=== PATIENT | female | born 1985 | race Caucasian/White ===

== ENCOUNTER 2018-09-10 13:03 | Emergency (ER) | payer OTHER ==
[2018-09-10 14:54] VITALS: BP 120/84
--- NOTE | 2018-09-10 15:01 | UC ---
Lower Extremity/Ankle HPI - HPI Summary HPI Summary: 33-year-old woman comes in with a chief complaint of left ankle pain. Started yesterday when she was walking and she twisted her ankle. Pain is worse in the posterior aspect near the Achilles tendon. The pain was fairly mild yesterday however the pains got a lot worse today. She's broken the ankle before she does not feel she has a fracture and declines x-ray. She is able to plantarflex and dorsiflex her foot however the dorsiflexion and also inversion of the ankle make the pain in the posterior ankle much worse as does weightbearing. No weakness or numbness. - History of Current Complaint Chief Complaint: UCLowerExtremity Stated Complaint: LT ANKLE Time Seen by Provider: 09/10/18 14:46 Hx Last Menstrual Period: 07/09 Pain Intensity: 2 - Allergies/Home Medications Allergies/Adverse Reactions: Allergies Allergy/AdvReac Type Severity Reaction Status Date / Time bee venom protein (honey bee) Allergy Difficulty Verified 09/10/18 14:45 Breathing Home Medications: Home Medications Epi-Pen 1 dose IM SEE INSTRUCTIONS PRN 09/10/18 [History] PMH/Surg Hx/FS Hx/Imm Hx Other Endocrine History: LUPUS - Surgical History Surgical History: Yes Surgery Procedure, Year, and Place: 5 C-SECTS. CHOLECYSTECTOMY - Family History Known Family History: Positive: Diabetes - Social History Alcohol Use: Rare Substance Use Type: None Smoking Status (MU): Never Smoked Tobacco Review of Systems Constitutional: Negative Skin: Negative Eyes: Negative ENT: Negative Respiratory: Negative Cardiovascular: Negative Gastrointestinal: Negative Motor: Negative Neurovascular: Negative Musculoskeletal: Other: - SEE HPI Neurological: Negative Psychological: Negative Is Patient Immunocompromised?: No All Other Systems Reviewed And Are Negative: Yes Physical Exam Triage Information Reviewed: Yes Appearance: Well-Appearing, Well-Nourished, Pain Distress - MILD WITH LT ANKLE MOVEMENT Vital Signs: Initial Vital Signs Temp 99 F 09/10/18 14:48 Pulse 91 09/10/18 14:48 Resp 22 09/10/18 14:48 BP 120/84 09/10/18 14:48 Pulse Ox 99 09/10/18 14:48 Vital Signs Reviewed: Yes Eye Exam: Normal Eyes: Positive: Conjunctiva Clear Neck exam: Normal Neck: Positive: Supple Respiratory: Positive: No respiratory distress Musculoskeletal: Positive: Other: - Left ankle is tender on the Achilles tendon then just anterior to the Achilles tendon. Tenderness is worse on the medial aspect patient is able to plantarflex and dorsiflex. The Achilles tendon is intact. Positive posterior tibial and dorsalis pedis pulses. No sensation deficit. Neurological Exam: Normal Neurological: Positive: Alert, Muscle Tone Normal Psychological Exam: Normal Psychological: Positive: Age Appropriate Behavior Skin Exam: Normal Lower Extremity Course/Dx - Course Course Of Treatment: Patient reports that she's had an ankle fracture in the past this does not feel like ankle fracture and therefore she declines an x-ray at this time. She has 6 children at home. The plan is to use a cam walker and crutches with weightbearing as tolerated. Ice ibuprofen and elevation and rest. The plan will be to follow-up with orthopedics or sports medicine if not completely improved. - Differential Dx/Diagnosis Provider Diagnoses: LEFT ANKLE SPRAIN Discharge - Sign-Out/Discharge Documenting (check all that apply): Patient Departure All imaging exams completed and their final reports reviewed: No Studies - Discharge Plan Condition: Stable Disposition: HOME Patient Education Materials: Ankle Sprain (ED) Referrals: Yaneth Wang DO [Primary Care Provider] - Nima Martin MD [Medical Doctor] - Diana Rodgers MD [Medical Doctor] - Susanna Becker MD [Medical Doctor] - Pranav CORREA,Warren Najera [Medical Doctor] - Additional Instructions: FOLLOW UP WITH ORTHOPEDICS OR SPORTS MEDICINE IF NOT COMPLETELY IMPROVED. GET RECHECKED FOR ANY WORSENING OF YOUR CONDITION OR QUESTIONS OR CONCERNS. - Billing Disposition and Condition Condition: STABLE Disposition: Home
== END 2018-09-10 15:21 | disposition home or self-care (01) ==
LOC: UCCORT 13:03
DX: S93.402A Sprain of unspecified ligament of left ankle, initial encounter (principal); M32.9 Systemic lupus erythematosus, unspecified; W01.0XXA Fall on same level from slipping, tripping and stumbling without subsequent striking against object, initial encounter; Y93.01 Activity, walking, marching and hiking; Y92.9 Unspecified place or not applicable; Z91.030 Bee allergy status
CPT/HCPCS: 99203; G0463

== ENCOUNTER 2018-11-12 11:04 | Emergency (ER) | payer OTHER ==
[2018-11-12 12:53] VITALS: BP 119/95
[2018-11-12] MEDS ORDERED: Ibuprofen TAB* 400 MG PO ONE (13:05)
--- NOTE | 2018-11-12 13:08 | UC ---
Respiratory Complaint HPI - HPI Summary HPI Summary: PAtient has been febrile, she is having a hard time taking a deep breath, hurts all over, has sinus pressure. - History of Current Complaint Chief Complaint: UCRespiratory Stated Complaint: VOICE LOSS, CONGESTION, COUGH Time Seen by Provider: 11/12/18 12:59 Hx Obtained From: Patient Hx Last Menstrual Period: 06/18/18 ?: No Onset/Duration: Sudden Onset, Lasting Days Timing: Constant Severity Initially: Moderate Severity Currently: Moderate Pain Intensity: 0 Character: Cough: Nonproductive Aggravating Factors: Exertion, Deep Breaths Associated Signs And Symptoms: Positive: Dyspnea, Fever, Wheezing, Nasal Congestion - Allergies/Home Medications Allergies/Adverse Reactions: Allergies Allergy/AdvReac Type Severity Reaction Status Date / Time bee venom protein (honey bee) Allergy Difficulty Verified 11/12/18 12:54 Breathing PMH/Surg Hx/FS Hx/Imm Hx Previously Healthy: Yes - Surgical History Surgical History: Yes Surgery Procedure, Year, and Place: 5 C-SECTS. CHOLECYSTECTOMY - Family History Known Family History: Positive: Diabetes - Social History Alcohol Use: Rare Substance Use Type: None Smoking Status (MU): Never Smoked Tobacco Review of Systems All Other Systems Reviewed And Are Negative: Yes Constitutional: Positive: Fever, Fatigue Skin: Positive: Negative Eyes: Positive: Negative ENT: Positive: Sore Throat, Nasal Discharge, Sinus Congestion Respiratory: Positive: Shortness Of Breath, Cough Cardiovascular: Positive: Negative Gastrointestinal: Positive: Negative Genitourinary: Positive: Negative Motor: Positive: Negative Neurovascular: Positive: Negative Musculoskeletal: Positive: Myalgia Neurological: Positive: Headache Psychological: Positive: Negative Is Patient Immunocompromised?: No Physical Exam Triage Information Reviewed: Yes Appearance: Well-Nourished, Ill-Appearing, Pain Distress Vital Signs: Initial Vital Signs Temp 98.0 F 11/12/18 12:49 Pulse 96 11/12/18 12:49 Resp 20 11/12/18 12:49 BP 119/95 11/12/18 12:49 Pulse Ox 98 11/12/18 12:49 Eye Exam: Normal ENT: Positive: Pharyngeal erythema, TM bulging Dental Exam: Normal Neck exam: Normal Neck: Positive: Supple, Nontender, No Lymphadenopathy Respiratory: Positive: No respiratory distress - mild, No accessory muscle use, Decreased breath sounds Cardiovascular Exam: Normal Cardiovascular: Positive: RRR, No Murmur, Pulses Normal Abdominal Exam: Normal Abdomen Description: Positive: Nontender, No Organomegaly, Soft Musculoskeletal Exam: Normal Neurological Exam: Normal Psychological Exam: Normal Skin Exam: Normal UC Diagnostic Evaluation - Laboratory O2 Sat by Pulse Oximetry: 98 Respiratory Course/Dx - Course Course Of Treatment: hx obtained, exam performed meds reviewed, rapid flu obtained, ibuprofen given - Differential Dx/Diagnosis Differential Diagnosis/HQI/PQRI: Aspiration, Asthma, Bronchitis, Influenza, Laryngitis, Sinusitis Provider Diagnosis: Sinusitis, Bronchitis Discharge - Sign-Out/Discharge Documenting (check all that apply): Patient Departure All imaging exams completed and their final reports reviewed: No Studies - Discharge Plan Condition: Stable Disposition: HOME Prescriptions: Azithromyxin APARNA (NF) [Z-Aparna (Zithromax) 250 mg tabs #6] 2 tab PO .TODAY, THEN 1 DAILY #6 tab predniSONE [Prednisone 20 MG TAB] 40 mg PO DAILY #14 tablet Patient Education Materials: Sinusitis (ED) Referrals: Yaneth Wang DO [Primary Care Provider] - Additional Instructions: 1. take the medication as prescribed. 2. Increase fluid intake 3. Ibuprofen and tylneol for pain and fever. 4. Follow up with your doctor if not improving. - Billing Disposition and Condition Condition: STABLE Disposition: Home - Attestation Statements Provider Attestation: Per institutional requirements, I have reviewed the chart, however, I was not consulted specifically or made aware of this patient by the midlevel provider. I did not personally evaluate, interact with , or disposition this patient.
== END 2018-11-12 13:55 | disposition home or self-care (01) ==
LOC: UCCORT 11:04
DX: J32.9 Chronic sinusitis, unspecified (principal); J40 Bronchitis, not specified as acute or chronic
CPT/HCPCS: 99212; A9270-GY; G0463

== ENCOUNTER 2019-03-27 19:03 | Emergency (ER) | payer OTHER ==
[2019-03-27 19:20] VITALS: BP 130/68
[2019-03-27] MEDS ORDERED: Naproxen TAB* 250 MG PO ONE (19:28)
--- NOTE | 2019-03-27 20:02 | UC ---
Lower Extremity/Ankle HPI - HPI Summary HPI Summary: 34-year-old female presents with complaints of left foot pain. States last night she accidentally kicked a door jam. States after the injury she thought that the second toe of her left foot was at an abnormal angle so she straight to back out on her own. Today she's had continued pain of the second third and fourth toes of her left foot as well as to the dorsal aspect of her left foot. She was able to bear weight and walk after the injury but states pain worsens with any weightbearing and sometimes radiates into the medial left ankle. Denies numbness or tingling. - History of Current Complaint Chief Complaint: UCLowerExtremity Stated Complaint: TOE INJURY/LEFT FOOT SWELLING Time Seen by Provider: 03/27/19 19:52 Hx Obtained From: Patient Hx Last Menstrual Period: 06/18/18 Pain Intensity: 5 - Allergies/Home Medications Allergies/Adverse Reactions: Allergies Allergy/AdvReac Type Severity Reaction Status Date / Time bee venom protein (honey bee) Allergy Difficulty Verified 03/27/19 19:21 Breathing PMH/Surg Hx/FS Hx/Imm Hx Previously Healthy: Yes GI/ History: Gall Bladder Disease - Surgical History Surgical History: Yes Surgery Procedure, Year, and Place: 5 C-SECTS. CHOLECYSTECTOMY. TUBAL - Family History Known Family History: Positive: Diabetes - Social History Occupation: Unemployed Lives: With Family Alcohol Use: Rare Substance Use Type: None Smoking Status (MU): Never Smoked Tobacco Review of Systems All Other Systems Reviewed And Are Negative: Yes Constitutional: Positive: Negative Skin: Negative: Bruising Respiratory: Positive: Negative Cardiovascular: Positive: Negative Gastrointestinal: Positive: Negative Genitourinary: Positive: Negative Motor: Negative: Weakness Neurovascular: Negative: Decreased Sensation Musculoskeletal: Positive: Other: - See HPI Neurological: Positive: Negative Is Patient Immunocompromised?: No Physical Exam - Summary Physical Exam Summary: GENERAL APPEARANCE: Well developed, well nourished, alert and cooperative, and appears to be in no acute distress. CARDIAC: Normal S1 and S2. No S3, S4 or murmurs. Rhythm is regular. There is no peripheral edema, cyanosis or pallor. Extremities are warm and well perfused. Capillary refill is less than 2 seconds. Peripheral pulses intact. LUNGS: Clear to auscultation without rales, rhonchi, wheezing or diminished breath sounds. ABDOMEN: Positive bowel sounds. Soft, nondistended, nontender. No guarding or rebound. No masses or hepatosplenomegally. MUSKULOSKELETAL: Normal muscular development. Limping gait. EXTREMITIES: Tenderness over the dorsal aspect of her left mid foot without gross deformity, ecchymosis, erythema, edema, or lesions. Tenderness to base of the 2nd and 3rd toes of the left foot without gross deformity, ecchymosis, erythema, edema, or lesions. Circulation and sensation intact. SKIN: Skin normal color, texture and turgor. Triage Information Reviewed: Yes Vital Signs: Initial Vital Signs Temp 98.1 F 03/27/19 19:13 Pulse 103 03/27/19 19:13 Resp 18 03/27/19 19:13 BP 130/68 03/27/19 19:13 Pulse Ox 100 03/27/19 19:13 Vital Signs Reviewed: Yes Diagnostics - Radiology No standard instances Radiology Interpretation Completed By: ED Physician - No acute fracture or dislocation Lower Extremity Course/Dx - Course Course Of Treatment: 34-year-old female presents with complaints of left foot pain. States last night she accidentally kicked a door jam. States after the injury she thought that the second toe of her left foot was at an abnormal angle so she straight to back out on her own. Today she's had continued pain of the second third and fourth toes of her left foot as well as to the dorsal aspect of her left foot. She was able to bear weight and walk after the injury but states pain worsens with any weightbearing and sometimes radiates into the medial left ankle. Denies numbness or tingling. Afebrile. Mildly hypertensive but otherwise vital signs stable. Exam revealed tenderness over the dorsal aspect of her left mid foot without gross deformity, ecchymosis, erythema, edema, or lesions as well as tenderness to base of the 2nd and 3rd toes of the left foot without gross deformity, ecchymosis, erythema, edema, or lesions. Circulation and sensation intact. Patient was given naproxen 500 mg 1 dose in the clinic for pain. X-ray of the left foot was obtained and showed no acute fracture or dislocation. Recommending conservative treatment for a left foot contusion. Patient was placed into a CAM boot for support and encouraged to use until pain free. Recommending [id number] analgesics as needed for pain as well as RICE. She was given a referral to orthopedic surgery to follow up in 5-7 days if symptoms do not improve. Anticipatory guidance and warning symptoms were reviewed with the patient. Verbalizes understanding and agrees with plan of care. - Differential Dx/Diagnosis Differential Diagnosis/HQI/PQRI: Contusion, Dislocation, Fracture (Closed), Sprain Provider Diagnosis: Contusion of left foot Discharge - Sign-Out/Discharge Documenting (check all that apply): Patient Departure All imaging exams completed and their final reports reviewed: No - Discharge Plan Condition: Stable Disposition: HOME Patient Education Materials: Foot Contusion (ED) Referrals: Yaneth Wang DO [Primary Care Provider] - Nima Martin MD [Medical Doctor] - 5 Days (If no improvement. Call for appointment.) Additional Instructions: The x-ray performed in the clinic today showed no evidence of a fracture. The x -rays would be reviewed by the radiologist tomorrow we will contact you if see anything that Will change her plan of care. Rest the foot as much as possible. Use the CAM boot that was provided to you in the clinic for the next several days until your pain free. Apply ice to the affected area for 15-20 minutes at least 4 times a day to help with the pain and swelling. Elevate the foot to help reduce swelling. Take acetaminophen (Tylenol) or ibuprofen (Advil, Motrin) according to directions as needed for pain. Follow up with orthopedic surgery in 5-7 days if symptoms do not improve. Call for appointment. Seek immediate medical attention if you have severe pain not managed with pain medication, you are unable to walk or bear any weight, develop numbness or tingling in the foot or toes, or have any worsening of symptoms. - Billing Disposition and Condition Condition: STABLE Disposition: Home
--- NOTE | 2019-03-28 08:40 | UC ---
- Progress Note Progress Note: Radiologist reading radiologist reading of left foot x-ray from March 27, 2019 is read as no fracture. Provider interpretation of the same date is also no fracture therefore there is no discrepancy. Course/Dx - Diagnoses Provider Diagnoses: Contusion of left foot Discharge - Sign-Out/Discharge Documenting (check all that apply): Patient Departure All imaging exams completed and their final reports reviewed: Yes - Discharge Plan Condition: Stable Disposition: HOME Patient Education Materials: Foot Contusion (ED) Referrals: Nima Martin MD [Medical Doctor] - 5 Days (If no improvement. Call for appointment.) Yaneth Wang DO [Primary Care Provider] - Additional Instructions: The x-ray performed in the clinic today showed no evidence of a fracture. The x -rays would be reviewed by the radiologist tomorrow we will contact you if see anything that Will change her plan of care. Rest the foot as much as possible. Use the CAM boot that was provided to you in the clinic for the next several days until your pain free. Apply ice to the affected area for 15-20 minutes at least 4 times a day to help with the pain and swelling. Elevate the foot to help reduce swelling. Take acetaminophen (Tylenol) or ibuprofen (Advil, Motrin) according to directions as needed for pain. Follow up with orthopedic surgery in 5-7 days if symptoms do not improve. Call for appointment. Seek immediate medical attention if you have severe pain not managed with pain medication, you are unable to walk or bear any weight, develop numbness or tingling in the foot or toes, or have any worsening of symptoms. - Billing Disposition and Condition Condition: STABLE Disposition: Home
== END 2019-03-27 20:17 | disposition home or self-care (01) ==
LOC: UCCORT 19:03
DX: S90.32XA Contusion of left foot, initial encounter (principal); W22.09XA Striking against other stationary object, initial encounter; Y93.01 Activity, walking, marching and hiking; Y92.019 Unspecified place in single-family (private) house as the place of occurrence of the external cause; Z91.030 Bee allergy status; Z87.19 Personal history of other diseases of the digestive system
CPT/HCPCS: 99212; A9270-GY; G0463